=== PATIENT | male | born 1990 | race Caucasian/White ===

== ENCOUNTER 2019-03-09 14:35 | Outpatient (RCR) | payer OTHER, SELFPAY ==
[2019-03-09 14:40] VITALS: BP 155/103; PULSE 95; RESP 16; TEMP 36.8; BMI 36.2
--- NOTE | 2019-03-09 19:19 | PCM.WC.HP ---
(1) Gangrene of right foot Status: Acute Current Visit: Yes Code(s): I96 - Gangrene, not elsewhere classified (2) Fracture of foot bone, right, open Status: Chronic Current Visit: Yes Qualifiers: Encounter type: sequela Qualified Code(s): S92.901S - Unspecified fracture of right foot, sequela Code(s): S92.901B - Unspecified fracture of right foot, initial encounter for open fracture (3) Cellulitis of foot, right Status: Chronic Current Visit: Yes Code(s): L03.115 - Cellulitis of right lower limb History of Present Illness Date of Service: 03/09/19 Chief Complaint: Wound of right foot s/p open fracture metatarsals with surgical closure and reduction History of Wound: Chip is a 28 yo [place] male who presents to the wound healing center for opinion regarding infection/wound of his right foot. 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 He had an open fracture of his metatarsal bones - all 5 were fractured but it appears that his 3rd or 4th metatarsal was the bone that came through his skin. He was taken to [facility] where surgery was performed for reduction and closure of his skin by Dr. Moody. He was given antibiotics during surgery but denies being discharged on any antibiotics. He reports that in the last 2 weeks he started to develop blackening of his skin and increased drainage. He was seen at [facility] on Tuesday and started on Augmentin twice daily and he has been applying silvadene to his foot and Burdock leaves and salve. He was not placed in a cast but has been non weight bearing and using crutches. He has been using an SANYA wrap. He has also been taking ASA twice daily to prevent blood clots. He denies any fever, chills, nausea, diarrhea, sweats or dizziness, or streaking of his skin. Past Medical History Past Medical History: Chronic Problems Fracture of foot bone, right, open (Chronic) Cellulitis of foot, right (Chronic) Allergies/Adverse Reactions: Allergies No Known Allergies Allergy (Verified 03/09/19 15:07) Home Medications: Ambulatory Orders Medication Instructions Recorded Aspirin E.C. [Ecotrin] 81 mg PO BID 03/09/19 Complete Bone And Tissue 6 tab PO BID 03/09/19 [place]-3 Fatty Acids [[place]-3] mg PO BID 03/09/19 Oxycodone HCl/Acetaminophen 1 tablet PO Q4H PRN PRN 03/09/19 [Percocet 7.5-325 mg Tablet] Lives: Spouse/ Significant Other Smoking Status: Current every day smoker Tobacco Use: Cigarettes Alcohol: None Drugs: None Review of Systems Constitutional: Reports: Malaise, Fatigue. Denies: Chills, Fever, Weight Change Eyes: Denies: Pain, Vision Change HEENT: Denies: Difficulty Hearing, Difficulty Swallowing, Sinus Congestion Cardiovascular: Denies: Chest Pain, Palpitations Respiratory: Denies: Cough, Shortness of Breath Gastrointestinal: Denies: Diarrhea, Nausea, Vomiting Genitourinary: Denies: Dysuria, Hematuria Musculoskeletal: Reports: Foot Pain Skin: Reports: Skin Changes, Wounds Neurological: Reports: Numbness Hematologic/ Lymphatic: Denies: Easy Bruising, Easy Bleeding - Physical Exam Vital Signs Temp Pulse Resp BP 98.2 F 95 16 155/103 H 03/09/19 14:40 03/09/19 14:40 03/09/19 14:40 03/09/19 14:40 General: Alert, Oriented x3, Cooperative, No apparent distress HEENT: Atraumatic, Normocephalic Oral: Moist Mucosa Neck: Supple, No JVD, Negative Carotid Bruits Lungs: Clear to auscultation Cardiovascular: Regular rate, Regular Rhythm Abdomen: Soft, Non Tender Extremities: Edema Skin: Ulcer/ Wound Wound Measurements and Assessment WC - Nurse 1 - General Ulcer Measurement Start: 03/09/19 14:40 Freq: Status: Active Protocol: Activity Type Activity Date Activity User E-Sign Co-Sign Detail Recorded Client Recorded Date Recorded By Document 03/09/19 14:40 [facility] [id number] 03/09/19 15:04 [facility] 03/09/19 14:40 Wound Center Nurse 1 [Ulcer Assessment] #1- RT DORSAL FOOT/TOE CLUSTER- POST TRAUMA -Combined with other wound No -Current Size (cm) - Length 17 -Current Size (cm) - Width 14 -Current Size (cm) - Depth 0.9 -Total Square Cm 238 -Date of Last Picture (Recall this 03/09/19 field) -Photo Taken Yes -Epithelialization None Present -Tunneling No -Undermining/Tunneling No -Circular Undermining No -Exudate Amt Large -Exudate Type Serosanguineous -Wound Margin Distinct, Outline Attached -Granulation Amt Small (1-33%) -Granulation Quality Red -Slough/Fibrin Yes -Necrosis Amt Large (67-100%) -Necrotic Tissue Type Eschar -Structure Exposed N/A -Texture (Mary-wound Skin Appearance) Assessed Scarring -Moisture (Mary-wound Skin Appearance Assessed ) -Color (Mary-wound Skin Appearance) Assessed Erythema -Temperature (Mary-wound Skin No Abnormality Appearance) (Pt Warm) -Tenderness on Palpation (Mary-wound Yes Skin Appearance) -Ulcer Cleansing Wound Cleanser -Foul Odor after Cleansing No -Anesthetic Used 5% Lidocaine Gel [Edema Assessment] -Lower Limb Edema Present Yes -Right Calf (cm) 35.5 -Right Ankle (cm) 23.5 WC - Nurse 2 - General Ulcer CM Notes Start: 03/09/19 14:40 Freq: Status: Active Protocol: Activity Type Activity Date Activity User E-Sign Co-Sign Detail Recorded Client Recorded Date Recorded By Document 03/09/19 16:30 DV [id number] 03/09/19 16:39 DV 03/09/19 16:30 Wound Center Nurse 2 [Procedure/Treatment] #1- RT DORSAL FOOT/TOE CLUSTER- POST TRAUMA -Time 16:30 -Correct Patient Yes -Correct Side, Site, Position Yes -Correct Procedure No -Procedure Performed No -Wound/Ulcer Outcome Not Healed [See Physician Procedure note for Specifics] Pain Scale: 0-10 Numeric [Pain] -Is Patient Pain Free? No Psych/Mental Status: Normal Affect - large area of schulte/black eschar with soft tissue necrosis noted laterally without erythema or streaking, granulation and thick yellow slough present surrounding eschar of dorsal right foot and right great toe, Appropriate Debridement Note Post-Debridement Measurements/Treatment - Nurse 2 - General Ulcer CM Notes Start: 03/09/19 14:40 Freq: Status: Active Protocol: Activity Type Activity Date Activity User E-Sign Co-Sign Detail Recorded Client Recorded Date Recorded By Document 03/09/19 16:30 DV [id number] 03/09/19 16:39 DV 03/09/19 16:30 Wound Center Nurse 2 #1- RT DORSAL FOOT/TOE CLUSTER- POST TRAUMA -Time 16:30 -Correct Patient Yes -Correct Side, Site, Position Yes -Correct Procedure No -Procedure Performed No -Wound/Ulcer Outcome Not Healed Pain Scale: 0-10 Numeric Is Patient Pain Free? No Wound debrided: right dorsal foot/toe cluster Laterality: Right Anesthesia Used: 4% Lidocaine Solution, 5% Lidocaine Gel No debridement was completed today - due to the need for extensive surgical debridement and probable IV antibiotics Assessment/Plan Active Problems Gangrene of right foot (Acute) Fracture of foot bone, right, open (Chronic) Cellulitis of foot, right (Chronic) Assessment: gangrene, cellulitis and traumatic wound of right foot as sequela of open fracture of right foot Plan: Chip was examined and his xrays were reviewed. Records from orthopedics were requested but not available to review today. Debridement was not completed due to the possibility of tendon involvement and need for more extensive surgical debridement. I discussed the options for treatment with Chip, his Reema and their friend Leona. I recommended that he go to the emergency room and be seen as he would likely be admitted and receive IV antibiotics and undergo further imaging as well as surgical debridement by podiatry. He was unsure if he wanted to do that at this time and wanted to discuss and pray on this with his family before proceeding. I proposed several possible scenarios or situations which might be alternatives such as being seen in the ER and started on IV antibiotics or maintained on oral antibiotics and undergoing CT in ER and then continuing treatment as an outpatient with surgical debridement this coming week. I stressed the importance of him having a surgical debridement as soon as possible to salvage his limb. He stated that he would likely go home and discuss it with his family and go to the ER tomorrow morning. His brother is getting on Tuesday and this complicates his decision making as he would like to be able to be present at the wed. I answered his questions as best as I could and feel comfortable with sending him home with close follow up. He is also scheduled to see the orthopedic surgeon next in follow up. He was advised of signs of systemic infection and agreed to go to the ER if he developed any of those signs or symptoms. His follow up is pending any decisions or surgical procedures. He was also given the number to [facility] Liaison if he should have additional questions and I gave him my number if he decides to go to the ER in order to communicate with the ER doctor the details of his case.
--- NOTE | 2019-03-09 19:24 | HP.PCM_ITS ---
(1) Gangrene of right foot Status: Acute Current Visit: Yes Code(s): I96 - Gangrene, not elsewhere classified (2) Fracture of foot bone, right, open Status: Chronic Current Visit: Yes Qualifiers: Encounter type: sequela Qualified Code(s): S92.901S - Unspecified fracture of right foot, sequela Code(s): S92.901B - Unspecified fracture of right foot, initial encounter for open fracture (3) Cellulitis of foot, right Status: Chronic Current Visit: Yes Code(s): L03.115 - Cellulitis of right lower limb History of Present Illness Date of Service: 03/09/19 Chief Complaint: Wound of right foot s/p open fracture metatarsals with surgical closure and reduction History of Wound: Chip is a 28 yo [place] male who presents to the wound healing center for opinion regarding infection/wound of his right foot. 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 He had an open fracture of his metatarsal bones - all 5 were fractured but it appears that his 3rd or 4th metatarsal was the bone that came through his skin. He was taken to [facility] where surgery was performed for reduction and closure of his skin by Dr. Moody. He was given antibiotics during surgery but denies being discharged on any antibiotics. He reports that in the last 2 weeks he started to develop blackening of his skin and increased drainage. He was seen at [facility] on Tuesday and started on Augmentin twice daily and he has been applying silvadene to his foot and Burdock leaves and salve. He was not placed in a cast but has been non weight bearing and using crutches. He has been using an SANYA wrap. He has also been taking ASA twice daily to prevent blood clots. He denies any fever, chills, nausea, d iarrhea, sweats or dizziness, or streaking of his skin. Past Medical History Past Medical History: Chronic Problems Fracture of foot bone, right, open (Chronic) Cellulitis of foot, right (Chronic) Allergies/Adverse Reactions: Allergies No Known Allergies Allergy (Verified 03/09/19 15:07) Home Medications: Ambulatory Orders Medication Instructions Recorded Aspirin E.C. [Ecotrin] 81 mg PO BID 03/09/19 Complete Bone And Tissue 6 tab PO BID 03/09/19 [place]-3 Fatty Acids [[place]-3] mg PO BID 03/09/19 Oxycodone HCl/Acetaminophen 1 tablet PO Q4H PRN PRN 03/09/19 [Percocet 7.5-325 mg Tablet] Lives: Spouse/ Significant Other Smoking Status: Current every day smoker Tobacco Use: Cigarettes Alcohol: None Drugs: None Review of Systems Constitutional: Reports: Malaise, Fatigue. Denies: Chills, Fever, Weight Change Eyes: Denies: Pain, Vision Change HEENT: Denies: Difficulty Hearing, Difficulty Swallowing, Sinus Congestion Cardiovascular: Denies: Chest Pain, Palpitations Respiratory: Denies: Cough, Shortness of Breath Gastrointestinal: Denies: Diarrhea, Nausea, Vomiting Genitourinary: Denies: Dysuria, Hematuria Musculoskeletal: Reports: Foot Pain Skin: Reports: Skin Changes, Wounds Neurological: Reports: Numbness Hematologic/ Lymphatic: Denies: Easy Bruising, Easy Bleeding - Physical Exam Vital Signs Temp Pulse Resp BP 98.2 F 95 16 155/103 H 03/09/19 14:40 03/09/19 14:40 03/09/19 14:40 03/09/19 14:40 General: Alert, Oriented x3, Cooperative, No apparent distress HEENT: Atraumatic, Normocephalic Oral: Moist Mucosa Neck: Supple, No JVD, Negative Carotid Bruits Lungs: Clear to auscultation Cardiovascular: Regular rate, Regular Rhythm Abdomen: Soft, Non Tender Extremities: Edema Skin: Ulcer/ Wound Wound Measurements and Assessment WC - Nurse 1 - General Ulcer Measurement Start: 03/09/19 14:40 Freq: Status: Active Protocol: Activity Type Activity Date Activity User E-Sign Co-Sign Detail Recorded Client Recorded Date Recorded By Document 03/09/19 14:40 [facility] [id number] 03/09/19 15:04 [facility] 03/09/19 14:40 Wound Center Nurse 1 [Ulcer Assessment] #1- RT DORSAL FOOT/TOE CLUSTER- POST TRAUMA -Combined with other wound No -Current Size (cm) - Length 17 -Current Size (cm) - Width 14 -Current Size (cm) - Depth 0.9 -Total Square Cm 238 -Date of Last Picture (Recall this 03/09/19 field) -Photo Taken Yes -Epithelialization None Present -Tunneling No -Undermining/Tunneling No -Circular Undermining No -Exudate Amt Large -Exudate Type Serosanguineous -Wound Margin Distinct, Outline Attached -Granulation Amt Small (1-33%) -Granulation Quality Red -Slough/Fibrin Yes -Necrosis Amt Large (67-100%) -Necrotic Tissue Type Eschar -Structure Exposed N/A -Texture (Mary-wound Skin Appearance) Assessed Scarring -Moisture (Mary-wound Skin Appearance Assessed ) -Color (Mary-wound Skin Appearance) Assessed Erythema -Temperature (Mary-wound Skin No Abnormality Appearance) (Pt Warm) -Tenderness on Palpation (Mary-wound Yes Skin Appearance) -Ulcer Cleansing Wound Cleanser -Foul Odor after Cleansing No -Anesthetic Used 5% Lidocaine Gel [Edema Assessment] -Lower Limb Edema Present Yes -Right Calf (cm) 35.5 -Right Ankle (cm) 23.5 WC - Nurse 2 - General Ulcer CM Notes Start: 03/09/19 14:40 Freq: Status: Active Protocol: Activity Type Activity Date Activity User E-Sign Co-Sign Detail Recorded Client Recorded Date Recorded By Document 03/09/19 16:30 DV [id number] 03/09/19 16:39 DV 03/09/19 16:30 Wound Center Nurse 2 [Procedure/Treatment] #1- RT DORSAL FOOT/TOE CLUSTER- POST TRAUMA -Time 16:30 -Correct Patient Yes -Correct Side, Site, Position Yes -Correct Procedure No -Procedure Performed No -Wound/Ulcer Outcome Not Healed [See Physician Procedure note for Specifics] Pain Scale: 0-10 Numeric [Pain] -Is Patient Pain Free? No Psych/Mental Status: Normal Affect - large area of schulte/black eschar with soft tissue necrosis noted laterally without erythema or streaking, granulation and thick yellow slough present surrounding eschar of dorsal right foot and right great toe, Appropriate Debridement Note Post-Debridement Measurements/Treatment - Nurse 2 - General Ulcer CM Notes Start: 03/09/19 14:40 Freq: Status: Active Protocol: Activity Type Activity Date Activity User E-Sign Co-Sign Detail Recorded Client Recorded Date Recorded By Document 03/09/19 16:30 DV [id number] 03/09/19 16:39 DV 03/09/19 16:30 Wound Center Nurse 2 #1- RT DORSAL FOOT/TOE CLUSTER- POST TRAUMA -Time 16:30 -Correct Patient Yes -Correct Side, Site, Position Yes -Correct Procedure No -Procedure Performed No -Wound/Ulcer Outcome Not Healed Pain Scale: 0-10 Numeric Is Patient Pain Free? No Wound debrided: right dorsal foot/toe cluster Laterality: Right Anesthesia Used: 4% Lidocaine Solution, 5% Lidocaine Gel No debridement was completed today - due to the need for extensive surgical debridement and probable IV antibiotics Assessment/Plan Active Problems Gangrene of right foot (Acute) Fracture of foot bone, right, open (Chronic) Cellulitis of foot, right (Chronic) Assessment: gangrene, cellulitis and traumatic wound of right foot as sequela of open fracture of right foot Plan: Chip was examined and his xrays were reviewed. Records from orthopedics were requested but not available to review today. Debridement was not completed due to the possibility of tendon involvement and need for more extensive surgical debridement. I discussed the options for treatment with Chip, his Reema and their friend Leona. I recommended that he go to the emergency room and be seen as he would likely be admitted and receive IV antibiotics and undergo further imaging as well as surgical debridement by podiatry. He was unsure if he wanted to do that at this time and wanted to discuss and pray on this with his family before proceeding. I proposed several possible scenarios or situations which might be alternatives such as being seen in the ER and started on IV antibiotics or maintained on oral antibiotics and undergoing CT in ER and then continuing treatment as an outpatient with surgical debridement this coming week. I stressed the importance of him having a surgical debridement as soon as possible to salvage his limb. He stated that he would likely go home and discuss it with his family and go to the ER tomorrow morning. His brother is getting on Tuesday and this complicates his decision making as he would like to be able to be present at the wed. I answered his questions as best as I could and feel comfortable with sending him home with close follow up. He is also scheduled to see the orthopedic surgeon next in follow up. He was advised of signs of systemic infection and agreed to go to the ER if he developed any of those signs or symptoms. His follow up is pending any decisions or surgical procedures. He was also given the number to [facility] Liaison if he should have additional questions and I gave him my number if he decides to go to the ER in order to communicate with the ER doctor the details of his case.
== END 2019-04-06 23:59 ==
LOC: WC 14:35
PROVIDERS: Visit Provider Family Medicine
DX: S92.901S Unspecified fracture of right foot, sequela (principal); W29 Contact with other powered hand tools and household machinery; I96 Gangrene, not elsewhere classified; L03.115 Cellulitis of right lower limb; F17.210 Nicotine dependence, cigarettes, uncomplicated; Z79.82 Long term (current) use of aspirin
CPT/HCPCS: 99204; G0463

== ENCOUNTER 2019-03-10 11:01 | Emergency (ER) | payer OTHER, SELFPAY ==
[2019-03-10 11:01] VITALS: BP 128/105; PULSE 122; RESP 17; TEMP 37; O2SAT 96; BMI 36.2
[2019-03-10 11:15] VITALS: TEMP 37
--- NOTE | 2019-03-10 11:39 | ED.VISSUMM ---
- ER Visit Summary Date of Service: 03/10/19 Chief Complaint: Right foot wound History of Present Illness: The patient is a 28 M who has a wound on his right foot. On February 06 the patient had an open metatarsal fracture at work. He was sent to [facility] from [facility] to have surgery. He had reduction of his fractures and was sent home not on antibiotics per the patient. He followed up with Dr. Nathan at the wound clinic yesterday and she noted a large area of necrotic tissue on the right foot and was concerned about gangrene. The patient went home on antibiotics, amoxicillin, and thought about whether he wanted to present because she felt he likely needed IV antibiotics and debridement. He called her today to tell her that he was coming in. He denies any drainage. He denies any significant pain. Physical Examination: Vital signs are reviewed. Heart is tachycardic and regular rhythm without murmurs. Lungs are clear. Abdomen is soft. Right foot exam reveals a 17 x 14 cm area of necrotic tissue. There is no erythema or drainage. There is evidence of a cream, likely Silvadene and an Alevism remedy cream that he is placed on this area. Test Results: Laboratory studies are normal Emergency Department Course and Treatment: Patient will be treated with IV Zosyn. I initially discussed with Dr. Schrader with podiatry and she was willing to see the patient. However, Dr. Lambert came down to evaluate the patient. He states that since the patient is Worker's Comp. since it is a work injury it would be very complicated. He then discussed with Dr. Schrader himself and they both felt that after discussion that the patient should go back to [facility] where his initial surgery was performed. The patient will be discussed with the physicians there and then transferred for further wound debridement Treatment Plan: [] Disposition: Transfer Impression: Necrotic right foot wound infection This note was generated with [employer] dictation software. It may contain incorrect words, spelling, and punctuation that were not noted in review of the chart prior to signing ED Disposition - Plan for ED Patient: Referrals: Katya Nathan DO [Primary Care Provider] -
[2019-03-10 11:54] LABS: Absolute Lymphocyte Count 1.57 X10^3/ul (0.83-4.51); Absolute Neutrophil Count 7.5 X10^3/uL (2.0-7.7); Basophil# 0.03 X10^3/uL; Basophil% 0.3 % (0-1); Eosinophil# 0.05 X10^3/uL; Eosinophils% 0.5 % (0-5); Hematocrit 42.1 % (40-54); Hemoglobin 14.2 g/dl (13.0-16.5); Lymphocyte # 1.57 X10^3/ul (4.0); Lymphocyte % 15.7 % (19-41); Mean Corp Hgb Conc 33.7 g/gl (32-36); Mean Corpuscular Hgb 30.1 pg (27.0-32.0); Mean Corpuscular Volume 89.2 fL (80-94); Mean Platelet Vol. 9.2 fl (6.2-12.0); Monocyte# 0.88 X10^3/uL; Monocyte% 8.8 % (0-10); Neutrophil # 7.45 X10^3/uL (2.7-7.7); Neutrophil % 74.6 % (47-70); POSITIVE COUNT NO; POSITIVE DIFFERENTIAL NO; POSITIVE MORPHOLOGY NO; Platelet Count 377 K/mm3 (150-450); RBC Distribution Width CV 12.3 % (11.6-14.6); RBC Distribution Width SD 39.9 fl (35.1-43.9); Red Blood Count 4.72 M/mm3 (4.6-6.2)
[2019-03-10 12:11] LABS: Anion Gap 6 (5-15); BUN 9 mg/dL (7-18); BUN/Creat Ratio 9.9 RATIO (10-20); Calcium,Total 9.3 mg/dL (8.5-10.1); Chloride 103 mmol/L (98-107); Creatinine, Serum 0.91 mg/dL (0.70-1.30); EST Glomerular Filtration Rate 106 mL/min (>60); Est Glom Filt Rate - Afr Amer 128 mL/min (>60); Estimated Creatinine Clearance 128.72 ml/min; Glucose 90 mg/dL (74-106); Potassium 3.7 mmol/L (3.5-5.1); Sodium Level 138 mmol/L (136-145)
[2019-03-10 12:27] LABS: Lactic Acid 1.7 mmol/L (0.4-2.0)
--- NOTE | 2019-03-10 13:06 | ED.DEP ---
ED Disposition - Plan for ED Patient: Disposition: Home or Assisted Living Instructions: ED Wound Infec After Surgery Referrals: Kamari Gutiérrez MD [NON-STAFF] -
[2019-03-10 13:26] VITALS: BP 157/98; PULSE 84; RESP 17; TEMP 37; O2SAT 98
[2019-03-10 16:12] VITALS: BP 161/95; PULSE 85; RESP 16; O2SAT 98
== END 2019-03-10 16:13 | disposition home or self-care (01) ==
PROVIDERS: Emergency Provider Emergency Medicine; Family Provider Family Medicine; PCP Family Medicine
DX: T81.49XA Infection following a procedure, other surgical site, initial encounter (principal)
CPT/HCPCS: 80048; 83605; 85025; 96365; 96366; 96368; 99284; J7040; J7050; A4216